=== PATIENT | female | born 1955 | race Caucasian/White ===

== ENCOUNTER 2020-12-27 15:18 | Outpatient (CLI) | payer MEDICARE, SELFPAY ==
[2020-12-27] MEDS: 0.9% Saline Lock 10 ML Syringe IV (15:46)
[2020-12-27 15:47] VITALS: BP 126/59; PULSE 101; RESP 18; TEMP 38; O2SAT 98; BMI 22.6
[2020-12-27] MEDS: Acetaminophen 325 MG Tablet 650 MG PO (16:30)
[2020-12-27 16:32] VITALS: BP 131/58; PULSE 101; RESP 16; TEMP 39.2; O2SAT 97
[2020-12-27 17:40] VITALS: BP 104/57; PULSE 95; RESP 16; TEMP 37.2; O2SAT 97
== END 2020-12-27 17:46 | disposition home or self-care (01) ==
LOC: MS3OUT 15:18 → MS3 15:19
PROVIDERS: PCP Family Medicine; Referring Provider Nurse Practitioner Adult Health; Visit Provider Nurse Practitioner Adult Health
DX: Z23 Encounter for immunization (principal); U07.1 COVID-19
CPT/HCPCS: J7050; M0243; A4216; Q0244